=== PATIENT | female | born 1995 ===

== ENCOUNTER 2021-06-24 19:05 | Emergency (ER) | payer OTHER, SELFPAY ==
--- NOTE | 2021-06-24 19:00 | RT.EKG_ITS ---
APPROVED REPORT Exam: Resting ECG Reason for Exam: chest pain Patient Location: E HR:73 bpm ECG Measurements Heart Rate 73 AXIS PA 150 P 53 QRSd 87 QRS 66 QT 419 T 29 QTc 463 Conclusion Sinus rhythm. Nonspecific t wave changes
[2021-06-24 19:12] VITALS: PULSE 80; RESP 20; TEMP 36.7; O2SAT 100
[2021-06-24 19:18] VITALS: RESP 20
[2021-06-24 19:22] VITALS: BP 137/74; PULSE 71; PULSE 82; RESP 17; O2SAT 100
[2021-06-24 19:23] VITALS: PULSE 83; RESP 14; O2SAT 99
--- NOTE | 2021-06-24 19:30 | DI.RAD_ITS ---
Exam(s) XR CHEST 2V PA LATERAL EXAM: XR CHEST 2V PA LATERAL CLINICAL HISTORY: Chest pain, palpitations TECHNIQUE: 2D digital imaging was performed. COMPARISON: No exams were available for comparison FINDINGS: MEDIASTINUM: Normal. HEART: Normal. PULMONARY VASCULATURE: Normal. LUNGS: Clear. Azygos lobe, normal variant. PLEURAL SPACE: No pleural effusion or pneumothorax. BONE:Unremarkable for age. IMPRESSION: No acute abnormality. DATA REPOSITORY: RADIATION DOSE DELIVERED:
--- NOTE | 2021-06-24 19:34 | ED.GENADUL_ITS ---
Discharge Plan Disposition Patient Disposition: HOME Condition: Improving Discharge Details Clinical Impression: Atypical chest pain, Anxiety, Hypokalemia Primary Care Provider: Bri,Local ED Provider: Riki Foster Home Meds and New Rx's Prescriptions: Continued albuterol 90 mcg/actuation Aerosol inhalation 0RF Discharge Instructions Instructions: Chest Pain (ED), Hypokalemia (ED), Anxiety (ED) Additional Instructions: Your potassium was slightly low in the emergency department and you would benefit from increasing dietary potassium with foods such as bananas, strawb erries, tree nuts such as almonds or cashews. follow up with your primary care provider in a week if you feel more ill, have severe worsening symptoms return to the emergency department Medical Decision Making <Lenny Morales MD - Last Filed: 06/24/21 20:35> This is a 26-year-old female who said intermittent episodes of palpitations and anterior chest tightness over days time. It was seemingly provoked by stress regarding a deeply personal relationship. She states that these episodes last approximately 1 minute and attenuated on their own. They are associated with a sense of palpitations and lightheadedness. She has not had syncope. No shortness of breath. She is breast-feeding a [id number] child but otherwise states that she has been feeling well. She arrives to ER afebrile, interactive and in no acute distress. Her exam is reassuring. Differential diagnosis includes anxiety reaction, atypical chest pain, must exclude underlying intrathoracic mass. Patient IV access established, given fluid bolus, referred for laboratory testing and chest x-ray. Laboratories note mild hypokalemia. Supplemented in the ED. CBC, troponin, TSH are reassuring. Most consistent with anxiety reaction. Patient's chest x-ray is pending and she will be signed out to Dr. Foster pending review of imaging, anticipate discharge home if unremarkable. Lab Data Lab results reviewed: Yes I reviewed the patient's lab results. Labs: Laboratory Results - last 24 hr 06/24/21 06/24/21 19:30 19:30 WBC 9.48 RBC 4.49 Hgb 14.0 Hct 41.2 MCV 92 MCH 31.2 MCHC 34.0 RDW 12.5 Plt Count 249 MPV 9.9 Immature Gran % 0.3 Neutrophils % 57.6 Lymphocytes % 30.2 Monocytes % 6.9 Eosinophils % 4.5 Basophils % 0.5 Nucleated RBC % 0.0 Absolute Neutrophils 5.46 Absolute Lymphocytes 2.86 Absolute Monocytes 0.65 Absolute Eosinophils 0.43 Absolute Basophils 0.05 Sodium 137 Potassium 3.2 L Chloride 101 Carbon Dioxide 28.1 Anion Gap 7.9 BUN 13 Creatinine 0.8 Estimated GFR/1.73 m2 >= 60.00 Glucose 137 H Calcium 8.8 Magnesium 2.1 Total Bilirubin 0.5 AST 14 L ALT 21 Alkaline Phosphatase 54 Troponin I < 50 Total Protein 7.6 Albumin 4.4 TSH 1.78 <Riki Foster MD - Last Filed: 06/24/21 22:05> This is a 26-year-old female who said intermittent episodes of palpitations and anterior chest tightness over days time. It was seemingly provoked by stress regarding a deeply personal relationship. She states that these episodes last approximately 1 minute and attenuated on their own. They are associated with a sense of palpitations and lightheadedness. She has not had syncope. No shortness of breath. She is breast-feeding a 48-[id number]-wur child but otherwise states that she has been feeling well. She arrives to ER afebrile, interactive and in no acute distress. Her exam is reassuring. Differential diagnosis includes anxiety reaction, atypical chest pain, must exclude underlying intrathoracic mass. Patient IV access established, given fluid bolus, referred for laboratory testing and chest x-ray. Laboratories note mild hypokalemia. Supplemented in the ED. CBC, troponin, TSH are reassuring. Most consistent with anxiety reaction. Patient's chest x-ray is pending and she will be signed out to Dr. Foster pending review of imaging, anticipate discharge home if unremarkable. Patient signed out to me, Dr. Foster, pending xray which was negative. She is stable and feels better. She is stable for d/c and advised to f/u with pcp and return precautions given Imaging Data Radiologic Study: Attestation: I personally reviewed and interpreted this imaging study as follows: Imaging: X-Ray My impression: no acute findings HPI <Lenny Morales MD - Last Filed: 06/24/21 20:35> General Mode of arrival: ambulatory . Date/Time Provider Initiated Documentation: 06/24/21 19:22 . Limitations to Documentation: no limitations . Information obtained by: patient . History of Present Illness 26 year old F presents to the emergency department with the chief complaint of Intermittent palpitations and chest pain, described as moderate, and is localized to the chest. Patient reports no radiation. Patient started experiencing this day(s) and it has been intermittent. improves with No relieving factors improve symptom(s), No exacerbating factors reported . Patient notes chest pain and other (Anxiety); denies syncope. Patient did receive the following treatments prior to arrival, none Related Data Home Medications Medication Instructions Recorded Confirmed albuterol 90 mcg/actuation aerosol INHALATION 06/24/21 inhaler Allergies Allergy/AdvReac Type Severity Reaction Status Date / Time No Known Allergies Allergy Unverified 06/24/21 19:23 General Stated Complaint: Chest Pain RITA: 3 Review of Systems <Lenny Morales MD - Last Filed: 06/24/21 20:35> Narrative: 6 systems reviewed and otherwise negative. No lower extremity pain or swelling. Patient is breast-feeding. PFSH <Lenny Morales MD - Last Filed: 06/24/21 20:35> All Active Problems (Updated 06/24/21 @ 20:35 by Lenny Morales MD) Atypical chest pain (Acute) Anxiety (Chronic) Hypokalemia (Acute) Medical History Asthma Surgical History History of tonsillectomy Social History Smoking/Tobacco Use Status: Never Smoking risk assessment performed?: Yes Alcohol Intake: current Alcohol Intake frequency: a few times a week Alcohol type: beer Drug use: Never Substance use type: does not use Do you feel safe at home: Yes Do you feel safe in your relationship?: Yes Exam <Lenny Morales MD - Last Filed: 06/24/21 20:35> Narrative Exam Narrative: GEN: awake, alert, oriented 3. Pleasant, well groomed, interactive. HEAD: Normocephalic, atraumatic ENT: Mucous membranes moist, oropharynx unremarkable, External ear exam unremarkable EYES: PERRL, EOMI NECK: Full ROM, no BRITTANY, no menigismus CHEST/RESP: Nontender, clear to auscultation bilateral, no wheeze/rhonchi/rales CARDIOVASCULAR: RRR, no murmur, rub sanchez. 2+ Rad pulse bilateral ABDOMEN: Soft, nontender, no mass. +Bowel sounds EXT: Full ROM, no edema, no rash Neuro: Grossly normal neurologic exam, conversant, interactive. Psych: Speech fluent, thoughts congruent, affect slightly anxious Course <Lenny Morales MD - Last Filed: 06/24/21 20:35> Vital Signs Vital signs: Vital Signs Temperature 36.7 C 06/24/21 19:12 Pulse 80 06/24/21 19:12 Respiratory Rate 20 06/24/21 19:12 Pulse Oximetry 100 06/24/21 19:12 Temperature 36.7 C 06/24/21 19:12 Temperature Source Temporal Artery Scan 06/24/21 19:12 Pulse 71 06/24/21 19:22 Pulse 83 06/24/21 19:23 Respiratory Rate 14 06/24/21 19:23 Respiratory Effort 06/24/21 19:18 Blood Pressure 137/74 06/24/21 19:22 Blood Pressure Mean 91 06/24/21 19:22 Blood Pressure Position Supine 06/24/21 19:12 Pulse Oximetry 99 06/24/21 19:23 Oxygen Delivery Method Room Air 06/24/21 19:12 Oxygen Flow Rate 0 06/24/21 19:12 Pain Level 2 06/24/21 19:18 Sign Out <Lenny Morales MD - Last Filed: 06/24/21 20:35> Sign Out Data: Sign Out Comment: Followup CXR Last updated by Lenny Morales MD at 06/24/21 20:32 PAWSS <Lenny Morales MD - Last Filed: 06/24/21 20:35> Have you Been Recently Intoxicated or Drunk Within the Last 30 days?: No Have you Ever Experienced Previous Episodes of Alcohol Withdrawal?: No Have you ever Experienced Withdrawal Seizures?: No Have you ever Experienced Delirium Tremens(DT)s?: No Have you ever undergone Alcohol Rehabilitation Treatment (i.e, inpt ot outpatie nt treatment programs)?: No Have you ever Experienced Blackouts?: No Have you ever Combined Alcohol with other Downers within the last 90 days?: No Have you ever Combined Alcohol with any other Substance of Abuse during the last 90 days?: No Positive Blood Alcohol level on Presentation? [PCS.BAL]: No Evidence of Increased Autonomic Activity (i.e. HR>120, tremor, sweating, agitation, nausea)?: No Result: 0 <Riki Foster MD - Last Filed: 06/24/21 22:05> Result: 0
[2021-06-24 19:45] LABS: Abs Immature Grans 0.03 10^3/uL (0.0-0.06); Absolute Basophil Count 0.05 10^3/uL (0.0-0.2); Absolute Eosinophil Count 0.43 10^3/uL (0.0-0.7); Absolute Lymphocyte Count 2.86 10^3/uL (1.2-3.4); Absolute Monocyte Count 0.65 10^3/uL (0.1-0.8); Absolute Neutrophil Count 5.46 10^3/uL (1.2-6.7); Basophils % 0.5; Eosinophils % 4.5; HCT 41.2 % (36.0-46.0); Immature Grans % 0.3; Lymphocytes % 30.2; MCH 31.2 pg (27.0-33.0); MCV 92 fL (80-95); MPV 9.9 fL (8.0-11.0); Monocytes % 6.9; Neutrophils % 57.6; Platelet Count 249 10^3/uL (130-400); RBC 4.49 10^6/uL (3.93-5.22); RDW 12.5 % (11.7-14.6); WBC 9.48 10^3/uL (4.4-10.8)
[2021-06-24 20:09] LABS: ALT 21 U/L (14-59); AST 14 U/L (15-37); Albumin 4.4 g/dL (3.4-5.0); Alkaline Phosphatase 54 U/L (46-116); Anion Gap 7.9 mmol/L (3-11); BUN 13 mg/dL (7-18); Bilirubin, Total 0.5 mg/dL (0.2-1.0); CO2 28.1 mmol/L (21.0-32.0); CREATININE 0.8 mg/dL (0.55-1.02); Calcium 8.8 mg/dL (8.5-10.1); Chloride 101 mmol/L (98-107); Glucose 137 mg/dL (74-106); Magnesium 2.1 mg/dL (1.8-2.4); Potassium 3.2 mmol/L (3.5-5.1); Sodium 137 mmol/L (136-145); TSH 1.78 uIU/mL (0.36-3.74); Total Protein 7.6 g/dL (6.4-8.2); Troponin I < 50 ng/L (<or=60)
[2021-06-24] MEDS: Potassium Chloride 10 MEQ TABCR PO (21:29)
[2021-06-24 21:47] VITALS: BP 127/90; PULSE 83; TEMP 36.6; O2SAT 97
--- NOTE | 2021-06-24 21:57 | DI.VRAD_ITS ---
PROCEDURE INFORMATION: Exam: XR Chest Exam date and time: 06/24/2021 9:25 PM Age: 26 years old Clinical indication: Chest wall pain; Additional info: Chest pain, palpitations TECHNIQUE: Imaging protocol: XR of the chest. Views: 2 views. COMPARISON: No relevant prior studies available. FINDINGS: Lungs: Lungs are adequately inflated and symmetric. No focal consolidation or pulmonary edema. Pleural spaces: No pleural effusion. No pneumothorax. Heart/Mediastinum: Cardiomediastinal contours within normal limits. Bones/joints: No acute osseous finding. IMPRESSION: No acute cardiopulmonary finding. Dictated and Authenticated by: Travis Morrissey MD. Ordering:EL Galvez MD
== END 2021-06-24 22:06 | disposition home or self-care (01) ==
PROVIDERS: Emergency Medicine; Emergency Provider Emergency Medicine
DX: R07.89 Other chest pain (principal); F41.9 Anxiety disorder, unspecified; E87.6 Hypokalemia; R00.2 Palpitations
CPT/HCPCS: 80053; 81025; 93005; 99284; 71046; 83735; 84443; 84484; 85025; 93010; J3490

== ENCOUNTER 2024-04-08 14:55 | Emergency (ER) | payer SELFPAY ==
[2024-04-08 15:14] VITALS: BP 147/102; PULSE 81; RESP 20; TEMP 36.7; O2SAT 99
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
[2024-04-08] MEDS: Acetaminophen 325 MG TAB 650 MG PO (16:30)
[2024-04-08] MEDS: Ibuprofen 400 MG TAB PO (16:31)
== END 2024-04-08 16:38 | disposition home or self-care (01) ==
LOC: ER 17:15
PROVIDERS: Emergency Provider Emergency Medicine
DX: M25.532 Pain in left wrist (principal); V43.52XA Car driver injured in collision with other type car in traffic accident, initial encounter
CPT/HCPCS: 99283; 73110

== ENCOUNTER 2024-07-01 18:38 | Emergency (ER) | payer OTHER, SELFPAY ==
[2024-07-01 18:49] VITALS: BP 124/88; PULSE 88; RESP 12; TEMP 36.3; O2SAT 97
--- NOTE | 2024-07-01 19:20 | DI.CT_ITS ---
Exam(s) CT ABDOMEN PELVIS W EXAM: CT ABDOMEN PELVIS W CLINICAL HISTORY: horse kicked patient RUQ/RLq, ECCHYMOSIS. TECHNIQUE: Imaging Protocol: Axial computed tomography images with coronal and sagittal reformatted images were created and reviewed CONTRAST MATERIAL: Intravenous: Omnipaque-350 75cc Oral: None COMPARISON: No exams were available for comparison FINDINGS: VISUALIZED LUNG BASES: No nodules nor pleural effusions evident. ABDOMEN: There is no ascites. No evidence of mesenteric nor bowel wall hematoma. LIVER: Intact. No laceration. No subcapsular hematoma. There are no significant focal hepatic lesi ons evident. Small finding in the fear aspect of the right hepatic lobe may be a small benign cavern ous hemangioma. There is also a tiny 3 millimeters 9 cyst in the superior aspect of the right lobe. No dilated intrahepatic ducts. GALLBLADDER/BILIARY: No obvious gallbladder pathology. CBD is not dilated. PANCREAS: No evidence of pancreatic mass nor dilatation of the pancreatic duct. SPLEEN: Intact. No laceration. Normal size. Splenic and portal veins are patent. ADRENALS: There are no significant adrenal masses. KIDNEYS:No evidence of renal lacerations nor subcapsular hematomas. No solid renal masses. No calcu li nor hydronephrosis.. ABDOMINAL AORTA: Unremarkable. Aortoiliac segments also unremarkable. LYMPH NODES:There is no retroperitoneal nor paraaortic adenopathy. ABDOMINAL WALL: No evidence of significant anterior abdominal wall nor inguinal hernia. No subcutane ous hematoma evident. GI: There is no evidence of bowel obstruction, free air, nor abscess. PELVIS: GI: No evidence of appendicitis.No evidence of sigmoid diverticulitis. LYMPH NODES: There is no intrapelvic nor inguinal adenopathy. REPRODUCTIVE: Uterus size normal. There is a peripherally enhancing corpus luteal cyst in the left o vary which measures 1.5 x 1.4 cm. There is also a small amount of free fluid in the cul-de-sac. URINARY BLADDER: No calculi nor obvious masses evident OSSEOUS: No fractures. There is sclerosis see incidentally around the both sides of the M right sacr oiliac joint possibly related sacroiliitis. No other significant osseous findings and there are no f ractures. IMPRESSION: 1. No evidence of significant trauma sequelae in the abdomen and pelvis. 2. Incidentally noted is sclerotic change around both sides of the right sacroiliac joint. May repre sent element of sacroiliitis. RADIATION DOSE DELIVERED: 226.95mGy.cm Total DLP DATA REPOSITORY: All CT scans at this facility are submitted to the National Radiology Data Registry (NRDR) Dose Index Registry (DIR) with the [employer] ([employer]). RADIATION OPTIMIZATION: All CT scans at this facility use at least one of these dose optimization te chniques: automated exposure control; mA and/or kV adjustment per patient size (includes targeted exa ms where dose is matched to clinical indication); or iterative reconstruction.
[2024-07-01 19:40] LABS: Bilirubin Negative (Negative); Blood Small (Negative); Clarity Clear (Clear); Glucose Negative (Negative); Ketones Negative (Negative); Leukocyte Esterase Negative (Negative); Nitrite Negative (Negative); Specific Gravity <= 1.005 (1.005-1.025); Urobilinogen 0.2 mg/dL (Up to 0.2)
[2024-07-01 19:46] LABS: Bacteria Negative HPF (Negative); C & S Indicated? No; Crystals Negative HPF (Negative); Epithelial Cells Rare HPF (Negative); Mucus Negative (Negative); RBC 0-2 HPF (0-2); WBC Negative HPF (0-5)
[2024-07-01 19:49] LABS: Abs Immature Grans 0.04 10^3/uL (0.0-0.06); Absolute Basophil Count 0.06 10^3/uL (0.0-0.2); Absolute Eosinophil Count 0.49 10^3/uL (0.0-0.7); Absolute Lymphocyte Count 2.15 10^3/uL (1.2-3.4); Basophils % 0.5 %; Eosinophils % 4.1 %; HCT 43.4 % (36.0-46.0); HGB 14.8 g/dL (11.2-15.7); Immature Grans % 0.3 %; Lymphocytes % 18.1 %; MCH 31.9 pg (27.0-33.0); MCHC 34.1 % (32.0-36.0); MCV 94 fL (80-95); MPV 9.5 fL (8.0-11.0); Monocytes % 6.6 %; Neutrophils % 70.4 %; Platelet Count 228 10^3/uL (130-400); RBC 4.64 10^6/uL (3.93-5.22); RDW-SD 44.7 fL; WBC 11.89 10^3/uL (4.4-10.8)
[2024-07-01 19:51] LABS: Absolute Monocyte Count 0.78 10^3/uL (0.1-0.8); Absolute Neutrophil Count 8.37 10^3/uL (1.2-6.7)
[2024-07-01] MEDS: Omnipaque 350 MG/ML 100 ML BTL 75 ML IJ (19:52)
[2024-07-01] MEDS: Normal Saline - Diluent 50 ML VIAL IJ (19:53)
[2024-07-01 20:07] LABS: ALT 102 U/L (14-59); AST 148 U/L (15-37); Albumin 4.6 g/dL (3.4-5.0); Alkaline Phosphatase 65 U/L (46-116); Anion Gap 10.3 mmol/L (3-11); BUN 10 mg/dL (7-18); Bilirubin, Total 0.4 mg/dL (0.2-1.0); CO2 25.7 mmol/L (21.0-32.0); CREATININE 0.7 mg/dL (0.55-1.02); Calcium 9.5 mg/dL (8.5-10.1); Chloride 104 mmol/L (98-107); Estimated GFR 119.24 (mL/min/1.73m2); Glucose 96 mg/dL (74-106); Lipase 88 U/L (<78); Potassium 3.3 mmol/L (3.5-5.1); Sodium 140 mmol/L (136-145); Total Protein 8.3 g/dL (6.4-8.2)
[2024-07-01 20:14] VITALS: BP 129/86; PULSE 68; RESP 16; O2SAT 100
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
[2024-07-01] MEDS: Ketorolac 15 MG/ML VIAL 7.5 MG IVP (21:39)
[2024-07-01 21:45] VITALS: BP 128/82; PULSE 72; RESP 16; O2SAT 99
--- NOTE | 2024-07-01 23:24 | ED.GENADUL_ITS ---
Discharge Plan Disposition Patient Disposition: Home Condition: Stable Discharge Details Clinical Impression: Abdominal contusion Primary Care Provider: Unknown,Unknown ED Provider: Brandy Berry Home Meds and New Rx's Prescriptions: New cyclobenzaprine 10 mg tablet 10 mg PO TID PRNQty: 15 0RF Continued albuterol 90 mcg/actuation Aerosol 90 mcg inhalation PRN PRN Discharge Instructions Instructions: Acute Pain, Adult Additional Instructions: Take Motrin as needed for pain You may take the Flexeril for pain uncontrolled Motrin Tylenol this may make you drowsy Your liver enzymes are slightly elevated at 148 and 100, this is not trauma related as your scans are reassuring I recommend having your liver enzymes rechecked in 1 to 2 weeks To develop worsening pain fever, chills, or any new concerns arise please return for reassessment HPI General Date/Time Provider Initiated Documentation: 07/01/24 19:09 . HPI Narrative: 29-year-old female presents after horse kicked her in the abdomen at 1630 hours today. No additional injuries, falls, nausea, vomiting, or possibility of . No history of coagulopathy. Related Data Home Medications ?Medication ?Instructions ?Recorded ?Confirmed albuterol 90 mcg/actuation aerosol 90 mcg inhalation PRN PRN 06/24/21 07/01/24 inhaler cyclobenzaprine 10 mg tablet 10 mg PO TID PRN #15 tabs 07/01/24 Previous Rx's ?Medication ?Instructions ?Recorded cyclobenzaprine 10 mg tablet 10 mg PO TID PRN #15 tabs 07/01/24 Allergies Allergy/AdvReac Type Severity Reaction Status Date / Time No Known Allergies Allergy Unverified 07/01/24 18:51 General Stated Complaint: Trauma RITA: 3 Exam Narrative Exam Narrative: Patient is alert and oriented she has tenderness and ecchymosis in the right upper quadrant and right lower lower quadrant consistent with a half of the course no left tenderness to abdomen and pelvis no CVA tenderness no chest wall tenderness neurovascularly intact GCS 15 Course Vital Signs Vital signs: Vital Signs Temperature 36.3 C L 07/01/24 18:49 Pulse 88 07/01/24 18:49 Respiratory Rate 12 07/01/24 18:49 Blood Pressure 124/88 07/01/24 18:49 Pulse Oximetry 97 07/01/24 18:49 Temperature 36.3 C L 07/01/24 18:49 Temperature Source Oral 07/01/24 18:49 Pulse 72 07/01/24 21:45 Respiratory Rate 16 07/01/24 21:45 Respiratory Effort Normal, Non-Labored 07/01/24 19:23 Respiratory Depth Normal 07/01/24 19:23 Respiratory Pattern Normal 07/01/24 19:23 Blood Pressure 128/82 07/01/24 21:45 Blood Pressure Mean 100 07/01/24 20:14 Blood Pressure Position Sitting 07/01/24 18:49 Pulse Oximetry 99 07/01/24 21:45 Oxygen Delivery Method Room Air 07/01/24 20:14 Oxygen Flow Rate 0 07/01/24 20:14 Pain Level 4 07/01/24 19:23 Lab/Test Results Lab/Test Results: Laboratory Tests Range/Units 07/01/24 07/01/24 19:22 19:43 WBC (4.4-10.8) 10^3/uL 11.89 H RBC (3.93-5.22) 10^6/uL 4.64 Hgb (11.2-15.7) g/dL 14.8 Hct (36.0-46.0) % 43.4 MCV (80-95) fL 94 MCH (27.0-33.0) pg 31.9 MCHC (32.0-36.0) % 34.1 RDW (11.7-14.6) % 13.0 Plt Count (130-400) 10^3/uL 228 MPV (8.0-11.0) fL 9.5 Immature Gran % % 0.3 Neutrophils % % 70.4 Lymphocytes % % 18.1 Monocytes % % 6.6 Eosinophils % % 4.1 Basophils % % 0.5 Nucleated RBC % (0.0-0.3) % 0.0 Absolute Neutrophils (1.2-6.7) 10^3/uL 8.37 H Absolute Lymphocytes (1.2-3.4) 10^3/uL 2.15 Absolute Monocytes (0.1-0.8) 10^3/uL 0.78 Absolute Eosinophils (0.0-0.7) 10^3/uL 0.49 Absolute Basophils (0.0-0.2) 10^3/uL 0.06 Sodium (136-145) mmol/L 140 Potassium (3.5-5.1) mmol/L 3.3 L Chloride (98-107) mmol/L 104 Carbon Dioxide (21.0-32.0) mmol/L 25.7 Anion Gap (3-11) mmol/L 10.3 BUN (7-18) mg/dL 10 Creatinine (0.55-1.02) mg/dL 0.7 Est GFR (CKD-EPI 2020) (mL/min/1.73m2) 119.24 Glucose (74-106) mg/dL 96 Calcium (8.5-10.1) mg/dL 9.5 Total Bilirubin (0.2-1.0) mg/dL 0.4 AST (15-37) U/L 148 H ALT (14-59) U/L 102 H Alkaline Phosphatase (46-116) U/L 65 Total Protein (6.4-8.2) g/dL 8.3 H Albumin (3.4-5.0) g/dL 4.6 Lipase (<78) U/L 88 H Urine Color (Yellow) Yellow Urine Clarity (Clear) Clear Urine pH (5-8) 6.0 Ur Specific [place] (1.005-1.025) <= 1.005 Urine Protein (Neg-Trace) mg/dL Negative Urine Ketones (Negative) mg/dL Negative Urine Blood (Negative) Small H Urine Nitrite (Negative) Negative Urine Bilirubin (Negative) Negative Urine Urobilinogen (Up to 0.2) mg/dL 0.2 Ur Leukocyte Esterase (Negative) Negative Urine RBC (0-2) HPF 0-2 Urine WBC (0-5) HPF Negative Ur Epithelial Cells (Negative) HPF Rare Urine Crystals (Negative) HPF Negative Urine Bacteria (Negative) HPF Negative Urine Mucus (Negative) Negative Ur Culture Indicated? No Urine Glucose (Negative) mg/dL Negative POC- Test(urine) Negative Medical Decision Making Laboratory Studies: Mild hypokalemia 3.3, AST 148, ALT 102. Imaging: CT abdomen and pelvis shows no evidence of abnormality. Initial Assessment: 29-year-old female presents after being kicked in the abdomen by a horse at 4:30 PM. Denies additional injuries, falls, nausea, vomiting, or chance of . No history of coagulopathy. ED Course: - Labs: mild hypokalemia (3.3), elevated AST (148), ALT (102) - CT abdomen and pelvis ordered due to trauma; read by me, no abnormalities Final Assessment: Patient experienced abdominal trauma from a horse kick. Labs showed mild hypokalemia and elevated liver enzymes. CT abdomen and pelvis showed no abnormalities. Increase potassium intake and follow up with PCP for lipase recheck. Clinical Impression: - Abdominal trauma Disposition: - Discharge - Follow-Up: Lipase recheck by primary care physician Patient Education: Return precautions reviewed in detail and patient expressed understanding. MDM Components Evaluation: - Number of Differential Diagnoses or Management Options: Abdominal trauma - Amount and Complexity of Data Reviewed: Labs (potassium, AST, ALT), CT abdomen and pelvis - Risk of Complication and Morbidity or Mortality: Low risk based on current assessment and diagnostic results Quality:SDOH Health Related Social Needs: No Data to Display PFSH All Active Problems (Updated 07/01/24 @ 21:39 by ROSINA Cedeño) Abdominal contusion (Acute) Medical History Asthma Surgical History History of tonsillectomy Social History Smoking/Tobacco Use Status: Never Smoking risk assessment performed?: Yes Alcohol Intake: current Alcohol Intake frequency: a few times a week Alcohol type: beer Drug use: Never Substance use type: does not use Do you feel safe at home: Yes Do you feel safe in your relationship?: Yes PAWSS Have you Been Recently Intoxicated or Drunk Within the Last 30 days?: No Have you Ever Experienced Previous Episodes of Alcohol Withdrawal?: No Have you ever Experienced Withdrawal Seizures?: No Have you ever Experienced Delirium Tremens(DT)s?: No Have you ever undergone Alcohol Rehabilitation Treatment (i.e, inpt ot outpatient treatment programs)?: No Have you ever Experienced Blackouts?: No Have you ever Combined Alcohol with other Downers within the last 90 days?: No Have you ever Combined Alcohol with any other Substance of Abuse during the last 90 days?: No Positive Blood Alcohol level on Presentation? [PCS.BAL]: No Evidence of Increased Autonomic Activity (i.e. HR>120, tremor, sweating, agitation, nausea)?: No Result: 0
== END 2024-07-01 21:47 | disposition home or self-care (01) ==
PROVIDERS: Emergency Provider Physician Assistant
DX: S30.1XXA Contusion of abdominal wall, initial encounter (principal); W55.12XA Struck by horse, initial encounter; E87.6 Hypokalemia
CPT/HCPCS: 99285; 99284; 81025; 96374; 80053; 83690; 74177; 81003; 81015; 85025; J1885; J3490